=== PATIENT | female | born 1995 | race Caucasian/White ===

== ENCOUNTER → 2017-09-08 | Outpatient (CLI) | payer OTHER ==
--- NOTE | 2017-09-08 17:39 | ECGEPIP ---
Stationary ECG Study [facility] Test Date: 2017-09-08 Pat Name: MICK MEJIA Department: Room: - Gender: F Carbonizer: : 1995 Requested By: Sergio Snell Order Number: [id number] Reading MD: Sergio Davila Measurements Intervals [place] Rate: 67 P: 65 [place]: 125 QRS: 85 QRSD: 80 T: 57 QT: 403 QTc: 427 Interpretive Statements SINUS RHYTHM POSSIBLE RIGHT VENTRICULAR CONDUCTION DELAY Electronically Signed On 09-08-2017 17:39:19 EST by Sergio Davila
== END ==
LOC: M SPECPROG 11:31
PROVIDERS: ATTEND Pediatrics Pediatric Cardiology
DX: Q21.0 Ventricular septal defect (principal)